=== PATIENT | female | born 1945 | race Caucasian/White ===

== ENCOUNTER 2020-03-12 23:23 | Emergency (ER) | payer OTHER, MEDICAID ==
[~2020-03-12] VITALS: Ht 154.9 cm; Wt 61.2 kg
[2020-03-12] MEDS: KETOROLAC 60 MG/2 ML VIAL IM ONE
[2020-03-12 23:29] VITALS: BP 154/73
--- NOTE | 2020-03-12 23:34 | NUR ---
PT AMBULATED TO BED #11
--- NOTE | 2020-03-12 23:50 | NUR ---
AT BEDSIDE EXAMINING PT
--- NOTE | 2020-03-13 | NUR ---
PT TAKEN TO XRAY VIA WHEELCHAIR
[2020-03-13] MEDS: KETOROLAC 60 MG/2 ML VIAL IM ONE (00:01)
--- NOTE | 2020-03-13 00:01 | NUR ---
74 Y/O FEMALE STATES WAS WALKING THE DOG, DOG PULLED ON LEASH, PT FELL FORWARD AND LANDED ON GROUND FACE FIRST, ABRAISON ON LEFT SIDE OF FACE, C/O RIGHT FOOT PAIN, RIGHT RIB PAIN, LEFT ELBOW PAIN 10/10 ABOUT 40 MINS AGO, PAINFUL IS THE DESCRIPTOR; NOT OTC PAIN MEDICATION PRIOR TO ER VISIT; LEFT ARM AREA TENDER TO PALP; +CMS; DENIES N/V/D; SKIN IS PINK/WARM/DRY; AAOX4 WITH EVEN AND STEADY GAIT; PT DENIES ANY FEVER, CP, SOB, OR COUGH AT THIS TIME; VSS; PATIENT POSITIONED FOR COMFORT; HOB ELEVATED; BEDRAILS UP X1; BED DOWN AND LOCKED PMH: HTN/Hysterectomy//HERNIA REPAIR NKA
--- NOTE | 2020-03-13 00:28 | NUR ---
PT RETURNED FROM XRAY IN WHEELCHAIR , VSS, WILL CONTINUE TO MONITOR
--- NOTE | 2020-03-13 00:35 | NUR ---
INFORMED PT STATED NO COLEEN RELIEF FROM IM INJECTION AND WOULD LIKE A PO PAIN MEDICATION, NEW ORDER NOTED AND CARRIED OUT
[2020-03-13] MEDS ORDERED: HYDROcodone/APAP 5/325 MG 1 TAB TAB PO ONE (00:50)
--- NOTE | 2020-03-13 01:00 | NUR ---
PT RESTING IN BED IN POSITION OF COMFORT, BED LOW AND LOCKED, 2 SIDERAILS UP, VSS, WILL CONTINUE TO MONITOR
--- NOTE | 2020-03-13 02:00 | NUR ---
GUSTAVO, EMT, AT BEDSIDE APPLYING CASSIE WRAP/SLING TO LEFT ARM AND PRADEEP TAPED TOES ON RIGHT FOOT
--- NOTE | 2020-03-13 02:11 | NUR ---
PLACED PT IN POSTERIOR LONG BONE SPLINT ON PT'S LEFT ARM AND WRAPED WITH 3" CASSIE BANDAGES. CHECKED PMSC'S BEFORE AND AFTER PLACEMENT OF SPLINT WITHOUT INCIDENT. PLACED PT IN SHOULDER IMMOBILZER AFTER SPLINT TO POSITION OF COMFORT WITHOUT INCIDENT. ALSO PRADEEP TAPED PT'S FIRST DIDGET TO SECOND DIDGET ON PT'S RIGHT FOOT, CHECKED PMSC'S BEFORE AND AFTER PLACEMENT OF TAPE WITHOUT INCIDENT.
[2020-03-13 02:14] VITALS: BP 154/73
--- NOTE | 2020-03-13 02:14 | NUR ---
Patient discharged with v/s stable. Written and verbal after care instructions given and explained. Patient alert, oriented and verbalized understanding of instructions. Ambulatory with steady gait. All questions addressed prior to discharge. ID band removed. Patient advised to follow up with PMD. Rx of MOTRIN/NORCO given. Patient educated on indication of medication including possible reaction and side effects. Opportunity to ask questions provided and answered.
== END 2020-03-13 02:14 | disposition home or self-care (01) ==
LOC: MED 23:23
DX: S52.125A Nondisplaced fracture of head of left radius, initial encounter for closed fracture (principal); S92.421A Displaced fracture of distal phalanx of right great toe, initial encounter for closed fracture; S20.20XA Contusion of thorax, unspecified, initial encounter; I10 Essential (primary) hypertension; Z90.710 Acquired absence of both cervix and uterus; Z98.890 Other specified postprocedural states; W19.XXXA Unspecified fall, initial encounter; Y93.K1 Activity, walking an animal; Y92.89 Other specified places as the place of occurrence of the external cause; Y99.8 Other external cause status
CPT/HCPCS: 29105; 71101; 73080; 73630; 96372; 99284; J1885